=== PATIENT | male | born 1985 | race Two or more races ===

== ENCOUNTER 2017-06-19 02:30 | Emergency (ER) | payer OTHER ==
[~2017-06-19] VITALS: Ht 177.8 cm; Wt 113.4 kg
[2017-06-19 02:40] VITALS: BP 160/110
[2017-06-19] MEDS ORDERED: Furosemide 40mg tab ORAL ONE (03:00)
[2017-06-19 03:09] VITALS: BP 160/110
--- NOTE | 2017-06-20 06:56 | Emergency Room Report ---
History of Present Illness General Chief Complaint: Medical Clearance Source: Patient Present Illness HPI 32-year-old male with diabetes, hypertension[facility] Patient takes [facility], states that his eyes get swollen every now and then and he just takes extra dose of Lasix. Denies any chest pain shortness of breath nausea vomiting. No dysuria hematuria. Also with lower extremity edema states that it is slightly worse than his normal denies other complaints Allergies: Coded Allergies: No Known Allergies (Unverified , 06/19/17) Patient History Past Medical History: see triage record Past Surgical History: none Pertinent Family History: none Reviewed Nursing Documentation: PMH: Agreed, PSxH: Agreed Nursing Documentation-PMH Hx Hypertension: Yes Hx Diabetes: Yes Review of Systems All Other Systems: negative except mentioned in HPI Physical Exam Vital Signs Date Time Temp Pulse Resp B/P (MAP) Pulse Ox O2 Delivery O2 Flow Rate FiO2 06/19/17 02:35 98.1 87 14 160/110 97 Room Air Sp02 EP Interpretation: reviewed, normal General Appearance: normal inspection, well appearing, no apparent distress, alert, GCS 15, non-toxic Head: normocephalic, atraumatic Eyes: bilateral eye normal inspection, bilateral eye PERRL, bilateral eye EOMI , bilateral eye other - Periorbital edema ENT: normal ENT inspection, normal pharynx, normal voice, moist mucus membranes Neck: normal inspection, full range of motion, supple Respiratory: normal inspection, lungs clear, normal breath sounds, no respiratory distress, no retraction, no wheezing, speaking full sentences, other - no crackles, chest symmetrical Cardiovascular #1: normal inspection, regular rate, rhythm, no edema, normal capillary refill Cardiovascular #2: 2+ radial (R), 2+ radial (L) Gastrointestinal: normal inspection, non tender, soft, non-distended, no guarding Genitourinary: no CVA tenderness Musculoskeletal: normal inspection, back normal, normal range of motion, non- tender, other - 1+ pitting edema bilaterally Neurologic: normal inspection, alert, oriented x3, responsive, motor strength/ tone normal, sensory intact, normal gait, speech normal Psychiatric: normal inspection, judgement/insight normal, memory normal Skin: normal inspection, normal color, no rash, warm/dry, well hydrated, normal turgor Medical Decision Making Diagnostic Impression: Primary Impression: Periorbital edema ER Course 32-year-old male brought by law enforcement periorbital edema DDX: Patient with chronic periorbital edema with intermittent exacerbations Plan: No labs indicated will give the patient his extra dose of Lasix ER course: Patient has remained stable during ED stay. Disposition: Patient is to be discharged to law enforcement Strict return precautions discussed with patient such as fever, chills, worsening/severe pain, shortness of breath, nausea, vomiting, which may indicate severe illness. Patient verbalizes understanding and agrees with plan. Please note that this Emergency Department Report was dictated using [employer] technology software, occasionally this can lead to erroneous entry secondary to interpretation by the dictation equipment Last Vital Signs Date Time Temp Pulse Resp B/P (MAP) Pulse Ox O2 Delivery O2 Flow Rate FiO2 06/19/17 03:09 98.1 87 14 160/110 97 Room Air Disposition: D/C TO LAW E[employer] IN [facility] Condition: Improved Referrals: NOT CHOSEN IPA/,REFERRING (PCP) Departure Forms: Prison Clearance Patient Instructions: Edema, [id number] Additional Instructions: Patient was given an extra 40 mg of Lasix in the emergency room No respiratory symptoms no chest pain no need for any other intervention Blanca Smith M.D. Jun 20, 2017 06:56
== END 2017-06-19 03:09 ==
LOC: EMR 02:49
DX: H05.223 Edema of bilateral orbit (principal); I10 Essential (primary) hypertension; E11.9 Type 2 diabetes mellitus without complications
CPT/HCPCS: 99283